=== PATIENT | female | born 1955 | race African-American/Black ===

== ENCOUNTER 2018-11-29 21:33 | Inpatient (IN) | payer MEDICARE, MEDICAID ==
[~2018-11-29] VITALS: Ht 160 cm; Wt 83.0 kg
[2018-11-30] MEDS ORDERED: ONDANSETRON HCL 4MG/2ML INJ IV STA (00:16)
[2018-11-30] MEDS ORDERED: SODIUM CHLORIDE 0.9% 1,000 ML IV ONE (00:16)
[2018-11-30] MEDS ORDERED: MORPHINE SULFATE 4 MG/ML CPJ (NOT FOR IM USE) IV STA (00:16)
[2018-11-30] MEDS ORDERED: PIPERACILLIN/TAZ 3.375G PREMIX 50 ML IV ONE (00:30)
[2018-11-30] MEDS ORDERED: VANCOMYCIN 1 G PREMIX 200 ML IV ONE (00:30)
[2018-11-30 02:10] LABS: PARTIAL THROMBOPLASTIN TIME 24.1 sec (23.4-31.0); PROTHROMBIN TIME 9.9 sec (9.1-11.1)
[2018-11-30 02:11] LABS: CHLORIDE 100 mEq/L (98-107)
[2018-11-30 02:14] LABS: EOSINOPHILS % 2.4 % (0.0-5.0); HEMATOCRIT. 38.3 % (36.0-48.0); HEMOGLOBIN. 12.5 g/dL (12.0-16.0); LYMPHOCYTES % 25.4 % (20.0-50.0); MEAN CORPUSCULAR HEMOGLOBIN 27.5 pg (28.0-32.0); MEAN CORPUSCULAR VOLUME 84.4 fL (81.0-99.0); MEAN PLATELET VOLUME 11.5 fl (7.4-10.4); MONOCYTES % 8.1 % (2.0-8.0); NEUTROPHILS % 63.1 % (40.0-76.0); PLATELET 226 x1000/uL (130-400); RED BLOOD CELL COUNT 4.54 mill/uL (4.2-5.4)
[2018-11-30] MEDS ORDERED: SODIUM CHLORIDE 0.9% 1,000 ML IV SCH (02:16)
[2018-11-30] MEDS ORDERED: INSULIN REGULAR (HUMULIN R) 300UNITS/3ML IV ONE (02:30)
[2018-11-30] MEDS ORDERED: DIPHENHYDRAMINE 50MG/ML VIAL IV PRN (02:30)
[2018-11-30] MEDS ORDERED: DEXTROSE 50% WATER 50ML SYRINGE IV PRN (02:30)
[2018-11-30] MEDS ORDERED: VANCOMYCIN 1 G PREMIX 200 ML IV SCH (02:30)
[2018-11-30] MEDS ORDERED: ONDANSETRON HCL 4MG/2ML INJ IV PRN (02:30)
[2018-11-30] MEDS: HYDROMORPHONE HCL/PF 2MG/ML CPJ IM PRN ×2 (03:50→09:30)
[2018-11-30 08:00] VITALS: BP 139/77
[2018-11-30] MEDS ORDERED: AMLODIPINE 10MG TABLET PO SCH (09:00)
[2018-11-30] MEDS ORDERED: LISINOPRIL 20MG TABLET PO SCH (09:00)
[2018-11-30 09:30] VITALS: BP 147/89
[2018-11-30] MEDS: INSULIN LISPRO 100 UNITS/ML SUBCUT SCH ×3 (09:31→18:04)
[2018-11-30] MEDS ORDERED: VANCOMYCIN 750 MG PREMIX 150 ML IV SCH (10:00)
[2018-11-30] MEDS ORDERED: INSULIN GLARGINE UD 100 UNITS/ML SYR SUBCUT SCH (10:00)
[2018-11-30] MEDS ORDERED: METR-218 MT (10:05)
[2018-11-30] MEDS ORDERED: ASPI-1159 PO (10:10)
[2018-11-30] MEDS ORDERED: GABA300S PO (10:10)
[2018-11-30] MEDS ORDERED: INSLIS SUBCUT (10:10)
[2018-11-30] MEDS ORDERED: TC025C15 TP (10:10)
[2018-11-30] MEDS ORDERED: PREMV VG (10:10)
[2018-11-30] MEDS ORDERED: ATOR40TA70 MT (10:10)
[2018-11-30] MEDS ORDERED: HYDR25TA MT (10:10)
[2018-11-30] MEDS ORDERED: LISI-604 MT (10:10)
[2018-11-30] MEDS ORDERED: AMLO10TA80 MT (10:10)
[2018-11-30] MEDS ORDERED: MULT-379 MT (10:10)
[2018-11-30] MEDS: PIPERACILLIN/TAZ 3.375G PREMIX 50 ML IV SCH ×2 (10:46→17:47)
[2018-11-30 12:00] VITALS: BP 133/67
[2018-11-30] MEDS ORDERED: LIDOCAINE HCL 1% 20ML VIAL (Pyxis) INJ INFIL NR (12:00)
[2018-11-30] MEDS: BLOOD SUGAR DIAGNOSTIC STRIP TEST SCH ×2 (12:12→18:05)
[2018-11-30 16:00] VITALS: BP_SYST 107; BP_SYST 121; BP_DIAS 59; BP_DIAS 70
[2018-11-30] MEDS ORDERED: TETANUS AND DIPHTHERIA TOX/PF 0.5ML SYR (ADULT) IM ONE (16:15)
== END 2018-11-30 19:45 | disposition home or self-care (01) | DRG 914 ==
LOC: ER 21:33 → 6EST 11-30 01:22 → ENRESERV 11-30 07:22
PROVIDERS: ADMIT Internal Medicine; ATTEND Internal Medicine
PROC: 0JCQ0ZZ Extirpation of Matter from Right Foot Subcutaneous Tissue and Fascia, Open Approach (ICD-10-PCS; principal; 2018-11-30)
DX: S91.321A Laceration with foreign body, right foot, initial encounter (principal); L03.115 Cellulitis of right lower limb; E11.9 Type 2 diabetes mellitus without complications; I10 Essential (primary) hypertension; Z82.49 Family history of ischemic heart disease and other diseases of the circulatory system; Z83.3 Family history of diabetes mellitus; Y93.89 Activity, other specified; Y92.098 Other place in other non-institutional residence as the place of occurrence of the external cause; Y99.8 Other external cause status; Z98.51 Tubal ligation status; Z90.49 Acquired absence of other specified parts of digestive tract; W25.XXXA Contact with sharp glass, initial encounter; Z79.899 Other long term (current) drug therapy
CPT/HCPCS: 36415; 73650; 80048; 82962; 83605; 84145; 93005; 96374; 96375; 99285; J1170; J1815; J2270; J2405; J2543; J3370; J3490; J7030